=== PATIENT | male | born 1970 | race Hispanic/Latino ===

== ENCOUNTER 2017-02-08 11:33 | Emergency (ER) | payer OTHER ==
[2017-02-08] MEDS ORDERED: Sodium Chloride 0.9% 1,000 ML IV STA (11:49)
[2017-02-08] MEDS ORDERED: Iohexol 240 (50 ml) PO STA (11:49)
[2017-02-08 12:02] VITALS: TEMP 97.8
[2017-02-08] MEDS ORDERED: Sodium Chloride 0.9% 1,000 ML ONE (12:08)
[2017-02-08] MEDS ORDERED: Iohexol 240 (50 ml) ONE (12:08)
[2017-02-08 12:17] LABS: BASO # 0.1 K/uL (0.0-0.2); BASO % 0.7 % (0.0-2.0); EOS # 0.3 K/uL (0.0-0.7); EOS % 3.1 % (0.0-4.0); HEMOGLOBIN 13.9 g/dL (12.0-18.0); LYMPH # 2.1 K/uL (1.0-4.3); LYMPH % 23.9 % (20.0-40.0); MEAN CELL VOLUME 84.1 fL (80.0-94.0); MEAN CORPUSCULAR HEMOGLOBIN 27.4 pg (27.0-31.0); MEAN CORPUSCULAR HGB CONC 32.6 g/dL (33.0-37.0); MEAN PLATELET VOLUME 8.3 fL (7.2-11.7); MONO # 1.1 K/uL (0.0-0.8); MONO % 12.7 % (0.0-10.0); NEUT # 5.1 K/uL (1.8-7.0); NEUT % 59.6 % (50.0-75.0); NRBC % 0.1 % (0.0-2.0); RBC 5.09 Mil/uL (4.40-5.90); WHITE BLOOD COUNT 8.6 K/uL (4.8-10.8)
[2017-02-08 12:25] LABS: ALBUMIN 4.2 g/dL (3.5-5.0)
[2017-02-08 12:28] LABS: ALB/GLOB RATIO 1.2 (1.0-2.1); ALT/SGPT 28 U/L (21-72); AST/SGOT 30 U/L (17-59); BLOOD UREA NITROGEN 16 mg/dL (9-20); CALCIUM 8.6 mg/dl (8.6-10.4); GFR AFRICAN-AMERICAN > 60; GFR NON-AFRICAN AMERICAN > 60; LIPASE 42 U/L (23-300)
[2017-02-08] MEDS ORDERED: Iodixanol 320 MG/ML 100 ML BOTTLE IV ONE (13:27)
--- NOTE | 2017-02-08 13:27 | C.PDOC ---
History Of Present Illness 46 y/o male c/o pain to pelvic area, radiating to the rectum, for several months. Patient reports pain has worsened over the last week. Denies new unprotected sexual contact, penile discharge, dysuria, nausea, vomiting, diarrhea, or other associated symptoms. Describes pain as constant and throbbing. Time Seen by Provider: 02/08/17 11:48 Chief Complaint (Nursing): Abdominal Pain History Per: Patient History/Exam Limitations: no limitations Onset/Duration Of Symptoms: Days, Persistent Current Symptoms Are (Timing): Still Present Radiation Of Pain To:: None Quality Of Discomfort: "Pain" Associated Symptoms: denies: Fever, Chills, Back Pain, Chest Pain, Urinary Symptoms Recent travel outside of the [place]: No Past Medical History Reviewed: Historical Data, Nursing Documentation, Vital Signs Vital Signs: Last Vital Signs Temp 97.8 F 02/08/17 14:51 Pulse 62 02/08/17 14:51 Resp 14 02/08/17 14:51 BP 117/69 02/08/17 14:51 Pulse Ox 99 02/08/17 15:23 - Medical History PMH: No Chronic Diseases Family History: States: Unknown Family Hx - Social History Hx Alcohol Use: No Hx Substance Use: No - Immunization History Hx Tetanus Toxoid Vaccination: No Hx Influenza Vaccination: No Hx Pneumococcal Vaccination: No Review Of Systems Except As Marked, All Systems Reviewed And Found Negative. Constitutional: Negative for: Fever, Chills Cardiovascular: Negative for: Chest Pain Respiratory: Negative for: Cough, Shortness of Breath, Wheezing Gastrointestinal: Negative for: Nausea, Vomiting, Diarrhea Genitourinary: Positive for: Other (pelvic area pain) Skin: Negative for: Rash Physical Exam - Physical Exam Appears: Non-toxic, No Acute Distress Skin: Normal Color, Warm, Dry Head: Atraumatic, Normacephalic Oral Mucosa: Moist Chest: Symmetrical Cardiovascular: Rhythm Regular Respiratory: Normal Breath Sounds, No Rales, No Rhonchi, No Wheezing Gastrointestinal/Abdominal: Soft, No Tenderness, No Distention, No Guarding, No Rebound Back: Normal Inspection, No CVA Tenderness Extremity: Normal ROM, Capillary Refill (< 2 sec.) Neurological/Psych: Oriented x3, Normal Speech, Normal Cognition ED Course And Treatment - Laboratory Results Result Diagrams: 02/08/17 12:10 02/08/17 12:10 O2 Sat by Pulse Oximetry: 99 (RA) Pulse Ox Interpretation: Normal - CT Scan/US ABD/PELVIS CT SCAN Other Rad Studies (CT/US): Read By Radiologist, Radiology Report Reviewed CT/US Interpretation: Accession No. : [id number]. Patient Name / ID : FINESSE MURILLO / [id number]. Exam Date : 02/08/2017 13:50:13 ( Approved ). Study Comment : Sex / Age : M / 46Y. Creator : Ying Chase MD. Dictator : Pocket Creaser : Calcine Furnace Tender : Ying Chase MD. Approver2 : Report Date : 02/08/2017 14:23:05. My Comment : . PROCEDURE: CT Abdomen and Pelvis with oral and IV contrast. HISTORY: pelvic pain. COMPARISON: None available. TECHNIQUE: Contiguous axial images of the abdomen and pelvis. Oral and IV contrast was administered. Coronal and Sagittal reformats generated and reviewed. Contrast dose: 100 cc Visipaque 320. Radiation dose: Total exam DLP = 443.98 MGy-cm. This CT exam was performed using one or more of the following dose reduction techniques: Automated exposure control, adjustment of the mA and/or kV according to patient size, and/or use of iterative reconstruction technique. FINDINGS: LOWER THORAX: No visible consolidation, pleural effusion, or pneumothorax. LIVER: Hypoattenuation of the liver compatible with hepatic steatosis. GALLBLADDER AND BILE DUCTS: Unremarkable. PANCREAS: Unremarkable. SPLEEN: Unremarkable. ADRENALS: Unremarkable. KIDNEYS AND URETERS: The kidneys enhance symmetrically. No hydronephrosis or obstructing renal calculus. BLADDER: The urinary bladder appears unremarkable. REPRODUCTIVE: The prostate gland measures approximately 3.9 x 4.4 cm. Partially imaged bilateral hydroceles. APPENDIX: The appendix appears within normal limits of caliber. No secondary signs of acute appendicitis. BOWEL: The stomach is nondistended. The bowel loops appear within normal limits of caliber without evidence of intestinal obstruction. Moderate constipation. PERITONEUM: No significant free fluid. No definite free air. LYMPH NODES: No bulky lymphadenopathy identified. VASCULATURE: No aortic aneurysm. BONES: No acute osseous abnormality is detected. OTHER FINDINGS: None. IMPRESSION: Moderate constipation. Partially imaged bilateral hydroceles. Hepatic steatosis. Progress Note: CT abdomen/pelvis, urinalysis, labs ordered. Treated with IV fluids. No acute abnormality found. Patient was d/c home. Copies of labs and CT given. Patient has an appointment with Urologist in [place] on 02/15/2017. Disposition - Disposition Referrals: Claritza Curry DO [[facility]] - Alesha Eng MD [Staff Provider] - Liz Zarate MD [Staff Provider] - Disposition: HOME/ ROUTINE Disposition Time: 15:15 Condition: STABLE Additional Instructions: Follow up with PMD within 1-2 days. Return to ED if feel worse. 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 - Scribe Statement The provider has reviewed the documentation as recorded by the Francescaibdemetrice Almodovar All medical record entries made by the Aj were at my direction and personally dictated by me. I have reviewed the chart and agree that the record accurately reflects my personal performance of the history, physical exam, medical decision making, and the department course for this patient. I have also personally directed, reviewed, and agree with the discharge instructions and disposition.
[2017-02-08 14:02] LABS: SQUAMOUS EPITHIAL < 1 /hpf (0-5); URINE BILIRUBIN NEGATIVE (NEGATIVE); URINE BLOOD NEGATIVE (NEGATIVE); URINE CLARITY Clear (Clear); URINE COLOR Yellow (YELLOW); URINE GLUCOSE (UA) NORMAL (Normal); URINE LEUKOCYTE ESTERASE NEG Leu/uL (Negative); URINE NITRATE NEGATIVE (NEGATIVE); URINE PROTEIN NEGATIVE (NEGATIVE); URINE UROBILINOGEN NORMAL mg/dL (0.2-1.0)
--- NOTE | 2017-02-08 14:24 | CT ---
PROCEDURE: CT Abdomen and Pelvis with oral and IV contrast. HISTORY: pelvic pain COMPARISON: None available. TECHNIQUE: Contiguous axial images of the abdomen and pelvis. Oral and IV contrast was administered. Coronal and Sagittal reformats generated and reviewed. Contrast dose: 100 cc Visipaque 320 Radiation dose: Total exam DLP = 443.98 MGy-cm. This CT exam was performed using one or more of the following dose reduction techniques: Automated exposure control, adjustment of the mA and/or kV according to patient size, and/or use of iterative reconstruction technique. FINDINGS: LOWER THORAX: No visible consolidation, pleural effusion, or pneumothorax. LIVER: Hypoattenuation of the liver compatible with hepatic steatosis. GALLBLADDER AND BILE DUCTS: Unremarkable. PANCREAS: Unremarkable. SPLEEN: Unremarkable. ADRENALS: Unremarkable. KIDNEYS AND URETERS: The kidneys enhance symmetrically. No hydronephrosis or obstructing renal calculus. BLADDER: The urinary bladder appears unremarkable. REPRODUCTIVE: The prostate gland measures approximately 3.9 x 4.4 cm. Partially imaged bilateral hydroceles. APPENDIX: The appendix appears within normal limits of caliber. No secondary signs of acute appendicitis. BOWEL: The stomach is nondistended. The bowel loops appear within normal limits of caliber without evidence of intestinal obstruction. Moderate constipation. PERITONEUM: No significant free fluid. No definite free air. LYMPH NODES: No bulky lymphadenopathy identified. VASCULATURE: No aortic aneurysm. BONES: No acute osseous abnormality is detected. OTHER FINDINGS: None. IMPRESSION: Moderate constipation. Partially imaged bilateral hydroceles. Hepatic steatosis.
[2017-02-08 14:52] VITALS: BP 117/69; PULSE 62; RESP 14
[2017-02-08 15:17] VITALS: O2SAT 99
== END 2017-02-08 15:34 | disposition home or self-care (01) ==
LOC: C.ER 11:33
DX: R10.2 Pelvic and perineal pain (principal)
CPT/HCPCS: 74177; 80053; 81001; 83690; 84153; 85025; 87086; 96360; 99283; J7040; Q9966; Q9967